=== PATIENT | male | born 1990 | race Caucasian/White ===

== ENCOUNTER 2018-05-22 20:55 | Emergency (ER) | payer BC, MEDICAID ==
[2018-05-22] MEDS ORDERED: oxyCODONE 5 MG TABLET PO STA (21:51)
[2018-05-22] MEDS ORDERED: cefTRIAXone 1 GM VIAL IM STA (21:51)
[2018-05-22] MEDS ORDERED: LIDOCAINE 1% 2 ML VIAL SUBQ ONE (21:51)
[2018-05-22] MEDS ORDERED: SULFAMETH/TRIMETH DS 800/160 MG TABLET PO STA (21:51)
--- NOTE | 2018-05-22 21:56 | ED Physician Documentation ---
History of Present Illness - Stated complaint Stated Complaint: MALE - Chief complaint Chief Complaint: General - History obtained from History obtained from: Patient - History of Present Illness Timing: How many weeks ago (1) Pain level max: 8 Pain level now: 8 Improved by: nothing Worsened by: palpation. sitting - Additonal information Additional information: Patient is a 28-year-old male who states that he was seen at urgent care a few days ago and diagnosed with hemorrhoids. States there has been continued swelling to the gluteal area. States it is like a golf ball now. Also has had subjective chills at home. Review of Systems Constitutional: reports: Fever (subjective), Chills Nose: denies: Rhinorrhea / runny nose, Congestion Throat: denies: Sore throat Cardiac: denies: Chest pain / pressure Respiratory: denies: Cough GI: denies: Nausea, Vomiting, Diarrhea Skin: denies: Rash Musculoskeletal: denies: Neck pain, Back pain Neurologic: denies: Headache PD PAST MEDICAL HISTORY - Past Medical History Past Medical History: Yes Cardiovascular: None Respiratory: None Psych: Anxiety - Past Surgical History Past Surgical History: Yes HEENT: Tonsil/Adenoidectomy - Present Medications Home Medications: Ambulatory Orders Medication Instructions Recorded Confirmed Cephalexin [Keflex] 500 mg PO Q6H #28 capsule 05/22/18 Oxycodone HCl/Acetaminophen 1 - 2 each PO Q6H PRN #14 tablet 05/22/18 [Percocet 5-325 mg Tablet] Sulfamethox/Trimeth 800/160 1 each PO BID #14 tablet 05/22/18 [Bactrim Ds 800/160] - Allergies Allergies/Adverse Reactions: Allergies Allergy/AdvReac Type Severity Reaction Status Date / Time No Known Drug Allergies Allergy Verified 05/22/18 21:25 - Social History Does the pt smoke?: Yes Smoking Status: Current every day smoker Does the pt drink ETOH?: Yes Does the pt have substance abuse?: No - Immunizations Immunizations are current?: No - POLST Patient has POLST: No PD ED PE NORMAL - Vitals Vital signs reviewed: Yes - General General: Alert and oriented X 3, No acute distress - HEENT HEENT: Moist mucous membranes - Neck Neck: Supple, no meningeal sign - Cardiac Cardiac: RRR - Respiratory Respiratory: No respiratory distress, Clear bilaterally - Abdomen Abdomen: Soft, Non tender, Non distended - Rectal Rectal: Other (draining abscess from the L buttock near the gluteal fold. no rectal/perirectal abscess.) - Derm Derm: Warm and dry - Neuro Neuro: Alert and oriented X 3 - Psych Psych: Normal mood, Normal affect Results - Vitals Vitals: Vital Signs - 24 hr 05/22/18 05/22/18 21:22 22:07 Temperature 37.1 C 37 C Heart Rate 119 H 96 Respiratory 16 15 Rate Blood Pressure 120/71 111/76 O2 Saturation 100 97 Oxygen O2 Source Room air - Labs Labs: Microbiology 05/22/18 21:40 Wound Culture - Preliminary Abscess PD MEDICAL DECISION MAKING - ED course Complexity details: reviewed results, re-evaluated patient, considered differential, d/w patient ED course: Patient is a 28-year-old male who presents to the emergency department with a left buttock abscess. Spontaneously drained. The purulent material was removed from the abscess. Wound culture obtained. Given IM Rocephin and Bactrim. Will place on antibiotics for home. Patient is well-appearing, nontoxic. Does not extend deep into the perirectal space. Patient counseled regarding signs and symptoms for which I believe and urgent re-evaluation would be necessary. Patient with good understanding of and agreement to plan and is comfortable going home at this time This document was made in part using voice recognition software. While efforts are made to proofread this document, sound alike and grammatical errors may occur. - Sepsis Event Vital Signs: Vital Signs - 24 hr 05/22/18 05/22/18 21:22 22:07 Temperature 37.1 C 37 C Heart Rate 119 H 96 Respiratory 16 15 Rate Blood Pressure 120/71 111/76 O2 Saturation 100 97 Oxygen O2 Source Room air Departure - Departure Disposition: 01 Home, Self Care Clinical Impression: Abscess of buttock Condition: Good Instructions: ED Abscess IandD Follow-Up: your,doctor in 3 days for wound check [Other] Prescriptions: Cephalexin [Keflex] 500 mg PO Q6H #28 capsule Oxycodone HCl/Acetaminophen [Percocet 5-325 mg Tablet] 1 - 2 each PO Q6H PRN # 14 tablet PRN Reason: pain Sulfamethox/Trimeth 800/160 [Bactrim Ds 800/160] 1 each PO BID #14 tablet Comments: Return if you worsen. Take all anitbiotics until gone. Do not drink alcohol or drive while on narcotic pain medicine. Note that many narcotic pain relievers also contain tylenol/acetaminophen. Please ensure that your total dose of acetaminophen from all sources does not exceed 3 grams (3000mg) per day. You may constipated on this medication, take a stool softener such as "Colace" twice a day while you are on it. Also recommend a [id number] laxative such as senna or MiraLAX any day that you do not have a bowel movement. If you received narcotic pain medication in the emergency department, do not drive or operate machinery for the next 24 hours. Forms: Activity restrictions Discharge Date/Time: 05/22/18 22:11
[2018-05-22 22:08] VITALS: BP 111/76
== END 2018-05-22 22:11 | disposition home or self-care (01) ==
LOC: ED 20:55
DX: L02.31 Cutaneous abscess of buttock (principal); F17.200 Nicotine dependence, unspecified, uncomplicated
CPT/HCPCS: 87070; 87181; 87205; 96372; 99283; A9270

== ENCOUNTER 2020-05-10 09:21 | Emergency (ER) | payer MEDICAID ==
[2020-05-10 09:29] VITALS: BP 142/93
[2020-05-10] MEDS ORDERED: ONDANSETRON 4 MG/2 ML VIAL IVP STA (09:46)
[2020-05-10] MEDS ORDERED: LORazepam 2 MG/ML VIAL IVP STA (10:00)
[2020-05-10] MEDS ORDERED: SODIUM CHLORIDE 0.9% 1,000 ML IV STA (10:10)
--- NOTE | 2020-05-10 10:38 | ED Physician Documentation ---
PD HPI NVD - Stated complaint Stated Complaint: N/V - Chief complaint Chief Complaint: Abd Pain - History obtained from History obtained from: Patient - History of Present Illness Timing - onset: Enter time (1100), Yesterday Timing - duration: Days (1) Timing - details: Abrupt onset, Still present Associated symptoms: Abdominal pain Contributing factors: Bad food Improved by: Vomiting, BM Worsened by: Eating Similar symptoms before: Has not had sx before Recently seen: Not recently seen - Additonal information Additional information: Previously well 30-year-old male states that he ate some [place] chicken wings at the time he and they tasted a little bit overdone. He subsequently developed vomiting and diarrhea and this has persisted. He has had vomiting and diarrhea all night and he has not been able to hold down his usual alcohol. He feels he is going into some withdrawal and feels shaky. He usually drinks about 5 ounces of alcohol per day either beer or hard alcohol. Review of Systems Constitutional: reports: Myalgias, Fatigue. denies: Fever, Chills Eyes: denies: Decreased vision Ears: denies: Ear pain Nose: denies: Congestion Throat: denies: Sore throat Cardiac: denies: Chest pain / pressure, Palpitations Respiratory: denies: Dyspnea, Cough GI: reports: Abdominal Pain, Nausea, Vomiting, Diarrhea : denies: Dysuria, Frequency Skin: denies: Rash Musculoskeletal: denies: Neck pain Neurologic: denies: Generalized weakness, Focal weakness, Numbness PD PAST MEDICAL HISTORY - Past Medical History Cardiovascular: None Respiratory: None Psych: Anxiety - Past Surgical History Past Surgical History: Yes HEENT: Tonsil/Adenoidectomy - Present Medications Home Medications: Ambulatory Orders Medication Instructions Recorded Confirmed Cephalexin [Keflex] 500 mg PO Q6H #28 capsule 05/22/18 Oxycodone HCl/Acetaminophen 1 - 2 each PO Q6H PRN #14 tablet 05/22/18 [Percocet 5-325 mg Tablet] Sulfamethox/Trimeth 800/160 1 each PO BID #14 tablet 05/22/18 [Bactrim Ds 800/160] LORazepam [Ativan] 1 - 2 mg PO Q6HR PRN #20 tablet 05/10/20 Ondansetron Odt [Zofran] 4 mg TL Q6H PRN #10 tablet 05/10/20 - Allergies Allergies/Adverse Reactions: Allergies Allergy/AdvReac Type Severity Reaction Status Date / Time No Known Drug Allergies Allergy Verified 05/10/20 09:25 - Social History Does the pt smoke?: Yes Smoking Status: Current every day smoker Does the pt drink ETOH?: Yes Does the pt have substance abuse?: No - Immunizations Immunizations are current?: No - POLST Patient has POLST: No PD ED PE NORMAL - Vitals Vital signs reviewed: Yes (Hypertensive) - General General: Alert and oriented X 3, No acute distress, Well developed/nourished - HEENT HEENT: Atraumatic, PERRL, EOMI - Neck Neck: Supple, no meningeal sign, No bony TTP - Cardiac Cardiac: RRR, No murmur - Respiratory Respiratory: No respiratory distress, Clear bilaterally - Abdomen Abdomen: Normal bowel sounds, Soft, Non tender, Non distended, No organomegaly - Back Back: No CVA TTP, No spinal TTP - Derm Derm: Normal color, Warm and dry, No rash - Extremities Extremities: No deformity, No edema, No calf tenderness / cord - Neuro Neuro: Alert and oriented X 3, No motor deficit, No sensory deficit, Normal speech Eye Opening: Spontaneous Motor: Obeys Commands Verbal: Oriented GCS Score: 15 - Psych Psych: Normal mood, Normal affect Results - Vitals Vitals: Vital Signs - 24 hr 05/10/20 09:26 Temperature 36.7 C Heart Rate 100 Respiratory 16 Rate Blood Pressure 142/93 H O2 Saturation 99 Oxygen O2 Source Room air Procedures - IVC sono (time) 0950 Bedside IVC sono: IVC measures (cm) (1.34), IVC collapsed c insp (cm) (complete), Dehydration (est 1 liter deficit) PD MEDICAL DECISION MAKING - ED course Complexity details: reviewed results, re-evaluated patient, considered differential, d/w patient ED course: 30-year-old male with an acute gastroenteritis likely related to food poisoning has developed some early signs of alcohol withdrawal. He is administered Zofran and this helped tremendously with his nausea. He subsequently administered Ativan with improvement in symptoms. Departure - Departure Disposition: 01 Home, Self Care Clinical Impression: Gastroenteritis Alcohol withdrawal Qualifiers: Complication of substance-induced condition: uncomplicated Qualified Code(s): F10.230 - Alcohol dependence with withdrawal, uncomplicated Condition: Stable Instructions: ED Withdrawal Alcohol, ED Food Poison Or Gastroenteritis Follow-Up: SANKET PINEDO MD [Physician No Access] - Prescriptions: LORazepam [Ativan] 1 - 2 mg PO Q6HR PRN #20 tablet PRN Reason: withdrawal symptoms Ondansetron Odt [Zofran] 4 mg TL Q6H PRN #10 tablet PRN Reason: Nausea / Vomiting
== END 2020-05-10 11:07 | disposition home or self-care (01) ==
LOC: ED 09:21
DX: K52.9 Noninfective gastroenteritis and colitis, unspecified (principal); E86.0 Dehydration; F10.230 Alcohol dependence with withdrawal, uncomplicated; F17.200 Nicotine dependence, unspecified, uncomplicated
CPT/HCPCS: 36415; 96361; 96374; 96375; 99283; 99284; J2060

== ENCOUNTER 2020-06-01 11:48 | Emergency (ER) | payer MEDICAID ==
[2020-06-01] MEDS ORDERED: SODIUM CHLORIDE 0.9% 1,000 ML IV STA ×2 (12:28→12:58)
[2020-06-01] MEDS ORDERED: ONDANSETRON 4 MG/2 ML VIAL IVP STA (12:28)
[2020-06-01] MEDS ORDERED: PANTOPRAZOLE 40 MG VIAL IVP STA (12:28)
[2020-06-01 12:32] LABS: GLUCOSE, URINE (UA) NEGATIVE (NEGATIVE); KETONES,URINE (UA) >=80 mg/dL (NEGATIVE); LEUKOCYTE ESTERASE, URINE NEGATIVE (NEGATIVE); NITRITE,URINE NEGATIVE (NEGATIVE); OCCULT BLOOD,URINE NEGATIVE (NEGATIVE); PROTEIN,URINE TRACE mg/dL (NEGATIVE); UROBILINOGEN,URINE 1 (NORMAL) E.U./dL (NORMAL)
[2020-06-01 12:34] LABS: CLARITY,URINE CLEAR (CLEAR)
[2020-06-01 12:37] LABS: BILIRUBIN,URINE NEGATIVE (NEGATIVE); ICTOTEST,URINE NEGATIVE
[2020-06-01 12:38] LABS: BASOPHILS % (AUTO) 0.3 %; EOSINOPHILS % (AUTO) 0.3 %; HGB - HEMOGLOBIN 15.2 g/dL (14.0-18.0); LYMPHOCYTES # (AUTO) 1.2 10^3/uL (1.5-3.5); LYMPHOCYTES % (AUTO) 21.6 %; MEAN CORPUSCULAR HEMOGLOBIN 34.5 pg (27.0-31.0); MEAN CORPUSCULAR HGB CONC 34.6 g/dL (32.0-36.0); MEAN CORPUSCULAR VOLUME 99.5 fL (80.0-94.0); MEAN PLATELET VOLUME 9.6 fL (7.4-11.4); MONOCYTES # (AUTO) 0.8 10^3/uL (0.0-1.0); MONOCYTES % (AUTO) 13.4 %; NEUTROPHILS # (AUTO) 3.7 10^3/uL (1.5-6.6); NEUTROPHILS % (AUTO) 64.1 %; PLT - PLATELET COUNT 176 10^3/uL (130-450); RED BLOOD COUNT 4.41 10^6/uL (4.70-6.10); RED CELL DISTRIBUTION WIDTH 12.1 % (12.0-15.0); WHITE BLOOD COUNT 5.8 x10^3/uL (4.8-10.8)
[2020-06-01 12:45] LABS: ALBUMIN/GLOBULIN RATIO 1.5 (1.0-2.2); BILIRUBIN,TOTAL 2.4 mg/dL (0.2-1.0); CALCIUM 9.3 mg/dL (8.5-10.3); CREATININE 0.8 mg/dL (0.6-1.2); TOTAL PROTEIN 8.3 g/dL (6.7-8.2)
--- NOTE | 2020-06-01 12:51 | ED Physician Documentation ---
History of Present Illness - Stated complaint Stated Complaint: N/V/D - Chief complaint Chief Complaint: Abd Pain - History obtained from History obtained from: Patient - History of Present Illness Timing: Today Pain level max: 0 Pain level now: 0 - Additonal information Additional information: 30-year-old male presents to the emergency department stating that he has an alcoholic and drinks heavily, often a pint per night or more. States that he started having vomiting yesterday and upper abdominal pain. Nothing makes it better or worse. Has not taken anything for it. No fevers. No chills. Diarrhea. No constipation. No other medical problems. No allergies to medication. He does smoke cigarettes and utilize marijuana as well. Review of Systems Ten Systems: 10 systems reviewed and negative Constitutional: denies: Fever, Chills Throat: denies: Sore throat Cardiac: denies: Chest pain / pressure Respiratory: denies: Cough GI: reports: Nausea, Vomiting. denies: Diarrhea Skin: denies: Rash Musculoskeletal: denies: Neck pain, Back pain Neurologic: denies: Headache PD PAST MEDICAL HISTORY - Past Medical History Cardiovascular: None Respiratory: None Psych: Anxiety - Past Surgical History Past Surgical History: Yes HEENT: Tonsil/Adenoidectomy - Present Medications Home Medications: Ambulatory Orders Medication Instructions Recorded Confirmed Esomeprazole Magnesium [Nexium] 40 mg PO DAILY #30 capsule. 06/01/20 Famotidine [Pepcid] 20 mg PO BID #60 tablet 06/01/20 Ondansetron Odt [Zofran] 4 mg TL Q6H PRN #10 tablet 06/01/20 Sucralfate [Carafate] 1 gm PO ACHS #60 tablet 06/01/20 - Allergies Allergies/Adverse Reactions: Allergies Allergy/AdvReac Type Severity Reaction Status Date / Time No Known Drug Allergies Allergy Verified 06/01/20 12:03 - Social History Does the pt smoke?: Yes Smoking Status: Current every day smoker Does the pt drink ETOH?: Yes Does the pt have substance abuse?: No - Immunizations Immunizations are current?: No - POLST Patient has POLST: No PD ED PE NORMAL - Vitals Vital signs reviewed: Yes - General General: Alert and oriented X 3, No acute distress, Well developed/nourished - HEENT HEENT: PERRL, Moist mucous membranes - Neck Neck: Supple, no meningeal sign - Cardiac Cardiac: RRR, Strong equal pulses - Respiratory Respiratory: No respiratory distress, Clear bilaterally - Abdomen Abdomen: Soft, Non distended, Other (To palpation epigastric. No peritoneal signs.) - Derm Derm: Warm and dry - Extremities Extremities: No calf tenderness / cord - Neuro Neuro: Alert and oriented X 3 - Psych Psych: Normal mood, Normal affect Results - Vitals Vitals: Vital Signs - 24 hr 06/01/20 06/01/20 06/01/20 11:58 14:02 14:33 Temperature 36.8 C 37.0 C Heart Rate 98 72 78 Respiratory 20 18 18 Rate Blood Pressure 155/106 H 142/87 H 133/96 H O2 Saturation 99 100 100 Oxygen O2 Source Room air - Labs Labs: Laboratory Tests 06/01/20 06/01/20 06/01/20 12:22 12:27 12:27 WBC 5.8 RBC 4.41 L Hgb 15.2 Hct 43.9 MCV 99.5 H MCH 34.5 H MCHC 34.6 RDW 12.1 Plt Count 176 MPV 9.6 Neut # (Auto) 3.7 Lymph # (Auto) 1.2 L Cameron # (Auto) 0.8 Eos # (Auto) 0.0 Baso # (Auto) 0.0 Absolute Nucleated RBC 0.00 Nucleated RBC % 0.0 VBG pH VBG pCO2 VBG pO2 VBG HCO3 VBG Total CO2 VBG O2 Saturation VBG Base Excess Sodium 134 L Potassium 3.7 Chloride 94 L Carbon Dioxide 16 L Anion Gap 24.0 H BUN 18 Creatinine 0.8 Estimated GFR (MDRD) 114 Glucose 98 Calcium 9.3 Phosphorus 2.1 L Magnesium 1.9 Total Bilirubin 2.4 H AST 146 H ALT 149 H Alkaline Phosphatase 81 Total Protein 8.3 H Albumin 5.0 Globulin 3.3 Albumin/Globulin Ratio 1.5 Lipase 35 Urine Color Urine Clarity Urine pH Ur Specific [place] Urine Protein Urine Glucose (UA) Urine Ketones Urine Occult Blood Urine Nitrite Urine Bilirubin Urine Urobilinogen Ur Leukocyte Esterase Ur Microscopic Review Urine Culture Comments Serum Ketones 06/01/20 06/01/20 06/01/20 12:27 12:58 13:09 WBC RBC Hgb Hct MCV MCH MCHC RDW Plt Count MPV Neut # (Auto) Lymph # (Auto) Cameron # (Auto) Eos # (Auto) Baso # (Auto) Absolute Nucleated RBC Nucleated RBC % VBG pH 7.405 VBG pCO2 35.5 L VBG pO2 45.0 VBG HCO3 21.7 L VBG Total CO2 22.8 L VBG O2 Saturation 82.9 H VBG Base Excess -2.3 L Sodium Potassium Chloride Carbon Dioxide Anion Gap BUN Creatinine Estimated GFR (MDRD) Glucose Calcium Phosphorus Magnesium Total Bilirubin AST ALT Alkaline Phosphatase Total Protein Albumin Globulin Albumin/Globulin Ratio Lipase Urine Color DARK YELLOW Urine Clarity CLEAR Urine pH 6.0 Ur Specific [place] 1.025 Urine Protein TRACE Urine Glucose (UA) NEGATIVE Urine Ketones >=80 H Urine Occult Blood NEGATIVE Urine Nitrite NEGATIVE Urine Bilirubin NEGATIVE Urine Urobilinogen 1 (NORMAL) Ur Leukocyte Esterase NEGATIVE Ur Microscopic Review NOT INDICATED Urine Culture Comments NOT INDICATED Serum Ketones SMALL H PD MEDICAL DECISION MAKING - ED course Complexity details: reviewed results, re-evaluated patient, considered differential, d/w patient, d/w family, d/w 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 Tolerating p.o. without difficulty. Given 2 L of normal saline as well. Social work met with the patient and gave him resources for alcohol cessation. Discussed the elevated LFTs with the patient as well. Informed him of the liver damage from the alcohol use. Will prescribe him PPI, H2 gunnar and Carafate for home. Patient counseled regarding signs and symptoms for which I believe and urgent re-evaluation would be necessary. Patient with good understanding of and agreement to plan and is comfortable going home at this time This document was made in part using voice recognition software. While efforts are made to proofread this document, sound alike and grammatical errors may occur. No right upper quadrant tenderness. No cholecystitis. Symptoms resolved with Zofran and GI cocktail Departure - Departure Disposition: 01 Home, Self Care Clinical Impression: Dehydration Alcoholic gastritis Qualifiers: Chronicity: acute Gastritis bleeding: without bleeding Qualified Code(s): K29.2 0 - Alcoholic gastritis without bleeding Condition: Good Instructions: ED Dehydration, ED Gastritis Follow-Up: your,doctor in 1 week [Other] Prescriptions: Sucralfate [Carafate] 1 gm PO ACHS #60 tablet Esomeprazole Magnesium [Nexium] 40 mg PO DAILY #30 capsule. Famotidine [Pepcid] 20 mg PO BID #60 tablet Ondansetron Odt [Zofran] 4 mg TL Q6H PRN #10 tablet PRN Reason: Nausea / Vomiting Comments: Return if you worsen. Use the medications as prescribed. Follow-up with your doctor for further care. You should work on quitting drinking. You can utilize the resources that were given to you by the social problems specialist today. Discharge Date/Time: 06/01/20 14:52
[2020-06-01 13:00] LABS: MAGNESIUM 1.9 mg/dL (1.7-2.8); PHOSPHORUS 2.1 mg/dL (2.5-4.6)
[2020-06-01 13:13] LABS: VBG PCO2 35.5 mmHg (41-51); VBG PH 7.405 (7.31-7.41)
[2020-06-01 13:14] LABS: VBG BASE EXCESS -2.3 mmol/L (-2 - +2); VBG TOTAL CO2 22.8 mmol/L (24-29)
[2020-06-01] MEDS ORDERED: SUCRALFATE 1 GM/10 ML UDC PO STA (13:40)
[2020-06-01] MEDS ORDERED: LIDOCAINE VISCOUS 2% 15 ML UDC MM STA (13:40)
[2020-06-01] MEDS ORDERED: MAG HYDROX/AL HYDROX/SIMETH 30 ML UDC PO STA (13:40)
[2020-06-01 14:34] VITALS: BP 133/96
== END 2020-06-01 14:52 | disposition home or self-care (01) ==
LOC: ED 11:48
DX: E86.0 Dehydration (principal); K29.20 Alcoholic gastritis without bleeding
CPT/HCPCS: 36415; 80053; 81003; 82009; 82803; 83690; 83735; 84100; 85025; 96361; 96374; 99284; A9270; 81001; 87086

== ENCOUNTER 2020-06-27 12:50 | Outpatient (CLI) | payer MEDICAID | END 2020-06-27 12:51 | disposition home or self-care (01) | LOC: COV 12:50 | PROVIDERS: ATTEND Family Medicine | DX: R50.9 Fever, unspecified (principal); R06.02 Shortness of breath; M79.10 Myalgia, unspecified site; R53.83 Other fatigue; R19.7 Diarrhea, unspecified; R11.2 Nausea with vomiting, unspecified; Z20.828 Contact with and (suspected) exposure to other viral communicable diseases ==

== ENCOUNTER 2020-07-09 13:53 | Outpatient (CLI) | payer MEDICAID ==
[2020-07-09 19:29] LABS: ALBUMIN 4.2 g/dL (3.2-5.5); ALBUMIN/GLOBULIN RATIO 1.4 (1.0-2.2); BILIRUBIN,TOTAL 0.7 mg/dL (0.2-1.0); CALCIUM 9.8 mg/dL (8.5-10.3); CREATININE 0.6 mg/dL (0.6-1.2); TOTAL PROTEIN 7.1 g/dL (6.7-8.2)
== END 2020-07-09 23:59 | disposition home or self-care (01) ==
LOC: LAB.WCP 13:53
PROVIDERS: ATTEND Family Medicine
DX: K29.70 Gastritis, unspecified, without bleeding (principal)
CPT/HCPCS: 36415; 80053

== ENCOUNTER 2020-07-30 07:15 | Day surgery (SDC) | payer MEDICAID ==
[2020-07-30] MEDS ORDERED: fentaNYL 250 MCG/5 ML VIAL IVP ONE (07:16)
[2020-07-30] MEDS ORDERED: MIDAZOLAM 2 MG/2 ML VIAL IVP ONE (07:16)
[2020-07-30] MEDS ORDERED: LACTATED RINGERS 1,000 ML IV ONE (07:22)
[2020-07-30] MEDS ORDERED: LIDO GARGLE 30 ML BOTTLE PO ONE (08:18)
[2020-07-30] MEDS ORDERED: BENZOCAINE/TETRACAINE/BUTAMBEN 20 GM TOP ONE (08:19)
[2020-07-30] MEDS ORDERED: LIDO GARGLE 30 ML BOTTLE ONE (08:29)
[2020-07-30] MEDS ORDERED: LACTATED RINGERS 700 ML IV ONE (08:57)
[2020-07-30] MEDS ORDERED: LACTATED RINGERS 200 ML IV ONE (08:57)
[2020-07-30 09:23] VITALS: BP 114/68
== END 2020-07-30 07:16 | disposition home or self-care (01) ==
LOC: SDS 07:15
PROVIDERS: ATTEND Surgery
PROC: 0DB68ZX Excision of Stomach, Via Natural or Artificial Opening Endoscopic, Diagnostic (ICD-10-PCS; principal; 2020-07-30 08:15)
DX: K29.70 Gastritis, unspecified, without bleeding (principal)
CPT/HCPCS: 43239; A9270; J3010; J7120

== ENCOUNTER 2020-08-14 00:02 | Emergency (ER) | payer MEDICAID ==
[2020-08-14] MEDS ORDERED: BUFFERED LIDOCAINE 10 ML SYRINGE SUBQ STA (00:20)
[2020-08-14] MEDS ORDERED: TETANUS/DIPHTHERIA/PERTUSSIS 0.5 ML SYRINGE IM ONE (00:33)
--- NOTE | 2020-08-14 00:35 | ED Physician Documentation ---
PD HPI UPPER EXT INJURY - Stated complaint Stated Complaint: LT HAND/LEG LAC - Chief complaint Chief Complaint: Laceration - History obtained from History obtained from: Patient - History of Present Illness Location: Left, Finger (thumb) Type of injury: Laceration Where injury occurred: Home Timing - onset: Today Timing - duration: Minutes Timing - details: Abrupt onset, Still present Improved by: Rest, Immobilization Worsened by: Moving, Palpating Associated symptoms: No: Weakness, Numbness, Tingling Contributing factors: No: Anticoagulated Similar symptoms before: Diagnosis (laceartion) Recently seen: Not recently seen - Additonal information Additional information: 30-year-old male who admits he had been drinking has broken a mirror, lacerated his left thumb and comes to the [facility] for suturing Review of Systems Constitutional: denies: Fever Respiratory: denies: Cough GI: denies: Vomiting Skin: reports: Laceration (s) Neurologic: denies: Focal weakness, Numbness PD PAST MEDICAL HISTORY - Past Medical History Past Medical History: Yes Cardiovascular: None Respiratory: None Endocrine/Autoimmune: None GI: GERD, Other : None HEENT: Chronic vision loss, Chronic sinusitis Psych: Depression, Anxiety Musculoskeletal: None Derm: None - Past Surgical History Past Surgical History: Yes HEENT: Tonsil/Adenoidectomy - Present Medications Home Medications: Ambulatory Orders Medication Instructions Recorded Confirmed Famotidine [Pepcid] 20 mg PO BID #60 tablet 06/01/20 07/29/20 Ondansetron Odt [Zofran] 4 mg TL Q6H PRN #10 tablet 06/01/20 07/29/20 - Allergies Allergies/Adverse Reactions: Allergies Allergy/AdvReac Type Severity Reaction Status Date / Time No Known Drug Allergies Allergy Verified 08/14/20 00:08 - Social History Does the pt smoke?: Yes Smoking Status: Current every day smoker Does the pt drink ETOH?: Yes Does the pt have substance abuse?: No - Immunizations Immunizations are current?: No - POLST Patient has POLST: No PD ED PE NORMAL - Vitals Vital signs reviewed: Yes (Tachycardic and hypertensive) - General General: Alert and oriented X 3, No acute distress, Well developed/nourished - HEENT HEENT: Atraumatic, PERRL - Respiratory Respiratory: No respiratory distress - Derm Derm: Normal color, Warm and dry, No rash - Extremities Extremities: No deformity, No edema, Other (There is a 2 cm laceration to the left thumb that does come up to the cuticle. There is no foreign material in the wound the nail is not involved.) - Neuro Neuro: Alert and oriented X 3, supervisor orchard 2-12 intact, No motor deficit, No sensory deficit, Normal speech Eye Opening: Spontaneous Motor: Obeys Commands Verbal: Oriented GCS Score: 15 - Psych Psych: Normal mood, Normal affect Results - Vitals Vitals: Vital Signs - 24 hr 08/14/20 08/14/20 00:04 00:12 Temperature 36.6 C 36.6 C Heart Rate 114 H 112 H Respiratory 18 18 Rate Blood Pressure 128/88 H 128/88 H O2 Saturation 96 97 Oxygen O2 Source Room air Procedures - Laceration (location) left thumb Length in cm: 2 Wound type: Curved, Flap Neurovascular status: Sensory intact, Motor intact, Vascular intact Anesthesia: Lidocaine 1%, With bicarb Wound Preparation: Irrigated copiously NS, Wound explored, To the base Skin layer closure: Nylon, Interrupted, Size #-0 - enter number (4-0) Other: Patient tolerated well, No complications, Neurovascular intact, Dressing applied, Tetanus booster given Complexity: Simple PD MEDICAL DECISION MAKING - ED course Complexity details: reviewed old records, considered differential, d/w patient ED course: thumb laceration fixed and tetanus administered. Departure - Departure Disposition: 01 Home, Self Care Clinical Impression: Thumb laceration Qualifiers: Encounter type: initial encounter Damage to nail status: without damage Foreign body presence: without foreign body Laterality: left Qualified Code(s): S61.012A - Laceration without foreign body of left thumb without damage to nail, initial encounter Condition: Stable Instructions: ED Laceration Hand Follow-Up: SANKET PINEDO MD [Physician No Access] - Comments: sutures will need to be removed in 7-10 days
[2020-08-14 00:45] VITALS: BP 126/72
== END 2020-08-14 00:44 | disposition home or self-care (01) ==
LOC: ED 00:02
DX: S61.012A Laceration without foreign body of left thumb without damage to nail, initial encounter (principal); W25.XXXA Contact with sharp glass, initial encounter; Y92.009 Unspecified place in unspecified non-institutional (private) residence as the place of occurrence of the external cause; F17.200 Nicotine dependence, unspecified, uncomplicated
CPT/HCPCS: 12001; 90471; 99283; 99284